=== PATIENT | female | born 1940 | race Asian ===

== ENCOUNTER 2019-07-21 05:55 | Day surgery (SDC) | payer OTHER ==
[~2019-07-21] VITALS: Ht 157.5 cm; Wt 66.8 kg
[~2019-07-21 05:55] MED LIST: ALEN70TA2 PO; AMIO200T5 PO; APIX5TAB PO; CHOL500062 PO; DOCU250C90 PO; FERR325T22 PO; FURO40TA5 PO; GABA-529 PO; METO-416 PO; OMEP20CA12 PO; POTA10TA PO; SODIUM CHLORIDE 0.9% 1,000 ML ONE
[2019-07-21] MEDS ORDERED: SODIUM CHLORIDE 0.9% 1,000 ML IV ONE (06:30)
[2019-07-21] MEDS ORDERED: VALS40TA4 PO (07:24)
[2019-07-21] MEDS ORDERED: CHOL100018 PO (07:24)
[2019-07-21] MEDS ORDERED: ACET-66 PO (07:24)
[2019-07-21] MEDS ORDERED: MIDAZOLAM HCL 2 MG/2 ML VIAL ONE (07:47)
[2019-07-21] MEDS ORDERED: FentaNYL CITRATE-PF 100 MCG/2 ML VIAL ONE (07:48)
[2019-07-21] MEDS ORDERED: MethylPREDNISolone SOD SUCC 125 MG/2 ML VIAL ONE (08:20)
[2019-07-21] MEDS ORDERED: MethylPREDNISolone SOD SUCC 125 MG/2 ML VIAL IVP ONE (08:30)
[2019-07-21] MEDS ORDERED: LIDOCAINE 4% 50 ML SOLUTION ONE (17:23)
[2019-07-21] MEDS ORDERED: ALBUTEROL SULFATE 2.5 MG/0.5 ML NEB SOLUTION NEB ONE (17:23)
[2019-07-21] MEDS ORDERED: LIDOCAINE 2% 30 ML JELLY ONE (17:23)
[2019-07-21] MEDS ORDERED: BENZOCAINE 20% 50 MCG/SPRAY 57 GM ONE (17:23)
[2019-07-21] MEDS ORDERED: OXYGEN THERAPY IH SCH (20:00)
== END 2019-07-21 10:10 | disposition home or self-care (01) ==
LOC: SURGERY 05:55
PROVIDERS: ATTEND Internal Medicine Critical Care Medicine
DX: R05 Cough (principal); J34.89 Other specified disorders of nose and nasal sinuses; J98.8 Other specified respiratory disorders; J38.4 Edema of larynx; B37.0 Candidal stomatitis; I10 Essential (primary) hypertension; E78.00 Pure hypercholesterolemia, unspecified; D64.9 Anemia, unspecified; M19.90 Unspecified osteoarthritis, unspecified site; I48.91 Unspecified atrial fibrillation; Z98.890 Other specified postprocedural states; Z79.899 Other long term (current) drug therapy
CPT/HCPCS: 31623; 31624; 71045; 87015; 87070; 87077; 87101; 87205; 87206; 87220; 88108; 88312; J2250; J2930; J3010; J7030